=== PATIENT | male | born 1955 | race Caucasian/White ===

== ENCOUNTER 2024-10-12 06:17 | Day surgery (SDC) | payer MEDICARE ==
[2024-10-11 12:49] VITALS: BMI 32.5
[~2024-10-12 06:17] MED LIST: EPINEPHrine 0.3 MG in Ophthalmic Irrigation Solution 500 ML IRR SCH
[2024-10-12] MEDS ORDERED: Cyclopentolate 1% Opth Drop 2 ML BOT ONE (06:41)
[2024-10-12] MEDS ORDERED: PROPOFOL 20 ML ONE (08:03)
[2024-10-12] MEDS ORDERED: Lidocaine 1% PF 5 ML VIAL ONE (08:50)
[2024-10-12] MEDS ORDERED: Maxitrol 0.1% Opth Oint 3.5 GM TUBE ONE (08:50)
[2024-10-12] MEDS ORDERED: Lidocaine 4% PF 5 ML AMP ONE (08:50)
[2024-10-12] MEDS ORDERED: CEFAZOLIN 1 GM VIAL ONE (08:50)
== END 2024-10-12 10:30 | disposition home or self-care (01) ==
LOC: SDC 06:17
PROVIDERS: ATTEND Ophthalmology Retina Specialist
PROC: 08T53ZZ Resection of Left Vitreous, Percutaneous Approach (ICD-10-PCS; principal; 2024-10-12)
PROC: 08NF3ZZ Release Left Retina, Percutaneous Approach (ICD-10-PCS; 2024-10-12)
DX: H35.342 Macular cyst, hole, or pseudohole, left eye (principal); Z88.6 Allergy status to analgesic agent
CPT/HCPCS: 67042; J0166; J2704; J3010; 67025; J0690; J3301; J3490